=== PATIENT | male | born 1945 ===

== ENCOUNTER 2023-08-04 20:25 | Inpatient (IN) | payer MEDICARE ==
[~2023-08-04] VITALS: Ht 190.5 cm; Wt 137.5 kg
[2023-08-04 20:28] VITALS: BP 168/94
[2023-08-04] MEDS ORDERED: Acetaminophen 325 MG TABLET PO PRN (21:50)
[2023-08-04] MEDS ORDERED: Acetaminophen 650 MG Supp PR PRN (21:50)
[2023-08-04 22:11] LABS: Hematocrit 41.3 % (37.0-53.0); Hemoglobin 13.1 g/dL (13.5-17.5); Mean Corpuscular HGB 29.6 pg (26.0-34.0); Mean Corpuscular HGB Conc 31.7 g/dL (31.5-36.5); Mean Corpuscular Volume 93 fL (80-100); RDW Coefficient Variation 17.5 % (11.7-14.2); RDW Standard Deviation 59.9 fL (35.1-46.3); Red Blood Cell Count 4.43 M/mm3 (4.30-5.90); White Blood Cell Count 10.03 K/mm3 (4.00-11.30)
[2023-08-04 22:15] LABS: Platelet Count 23 K/mm3 (150-400)
[2023-08-04 22:26] LABS: Magnesium, Blood 2.5 mg/dL (1.6-2.4)
[2023-08-04 22:27] LABS: Phosphorus, Blood 5.5 mg/dL (2.5-4.9)
[2023-08-04 22:31] LABS: BAND PERCENT MAN 2 % (0-8); BASOPHILS PERCENT MAN 1 % (0-2); EOSINOPHILS PERCENT MAN 1 % (0-6); LYMPHOCYTES PERCENT MAN 15 % (21-46); MONOCYTES PERCENT MAN 6 % (4-13); NEUTROPHILS ABSOLUTE MAN 7.72 K/mm3 (1.96-9.15); SEG NEUTROPHILS PERCENT MAN 75 % (41-73); TOTAL CELLS COUNTED 100
[2023-08-04] MEDS ORDERED: Ipratropium/Albuterol SulF 2.5-0.5MG/3 ML Amp INH SCH (23:00)
[2023-08-04 23:04] LABS: Albumin, Blood 3.6 g/dL (3.4-5.0); Albumin/Globulin Ratio 0.8 (0.8-1.8); Bilirubin, Total 0.9 mg/dL (0.1-1.0); Bun/Creatinine Ratio 8.7 (12.0-20.0); Calcium, Blood 8.6 mg/dL (8.5-10.1); Creatinine, Blood 5.19 mg/dL (0.60-1.20); Globulin, Blood 4.4 g/dL (2.2-4.0); Potassium, Blood 4.9 mmol/L (3.5-5.5)
[2023-08-04 23:05] LABS: Bicarbonate Venous 26.5 mmol/L (24.0-30.0); PCO2 Venous 52.1 mmHg (38-42); pH Blood Venous 7.36 (7.34-7.37)
[2023-08-04 23:06] LABS: Base Excess Venous 4.1 mmol/L
[2023-08-04] MEDS ORDERED: Albuterol 2.5 MG/3 ML VIAL INH PRN (23:30)
[2023-08-04] MEDS ORDERED: Albuterol HFA200 ACT/6.7 GM INH INH PRN (23:30)
[2023-08-04] MEDS ORDERED: ALPRAZolam 1 MG Tab PO ONE (23:55)
[2023-08-05] VITALS (17 sets, daily range): BP systolic 104–157; BP diastolic 58–103
[2023-08-05] MEDS ORDERED: HydrALAZINE HCl 20 MG / ML 1ML Vial IV PRN (00:05)
[2023-08-05] MEDS ORDERED: CefTRIAXone Sodium 1,000 MG in NS 100 ML IV SCH (00:10)
[2023-08-05] MEDS ORDERED: NS 250 ML IV PRN (00:15)
[2023-08-05] MEDS ORDERED: Azithromycin 500 MG in NS 250 ML IV SCH (00:15)
[2023-08-05] MEDS ORDERED: TraMADol HCl 50 MG Tab PO PRN (00:15)
--- NOTE | 2023-08-05 01:25 | NUR ---
DIRECT ADMIT PT ARRIVED @ 1999 FROM [place] VIA [facility]SP[facility]. PT ARRIVED ON O2 6L/NC AND SWITCHED TO 6L/HFNC UPON ARRIVAL. PT ARRIVED SHORTLY AFTER PT.
[2023-08-05] MEDS ORDERED: CARV6.25 PO (02:22)
[2023-08-05] MEDS ORDERED: ESCI20 PO (02:23)
[2023-08-05] MEDS ORDERED: MIDO5 PO (02:24)
[2023-08-05] MEDS ORDERED: VITAMIN D33000 UNIT PO (02:27)
[2023-08-05] MEDS ORDERED: ALPR1 PO (02:29)
[2023-08-05] MEDS ORDERED: Calcium Acetat667 MG (02:31)
[2023-08-05] MEDS ORDERED: Colace100 MG PO (02:32)
[2023-08-05] MEDS ORDERED: FAMC500 PO (02:37)
[2023-08-05 04:30] LABS: BASOPHILS ABSOLUTE AUTO 0.04 K/mm3 (0.00-0.23); BASOPHILS PERCENT AUTO 0 % (0-2); EOSINOPHILS ABSOLUTE AUTO 0.55 K/mm3 (0.00-0.68); EOSINOPHILS PERCENT AUTO 6 % (0-6); Hematocrit 39.5 % (37.0-53.0); Hemoglobin 12.4 g/dL (13.5-17.5); IMMATURE GRAN ABSOLUTE AUTO 0.03 K/mm3 (0.00-0.10); IMMATURE GRAN PERCENT AUTO 0 % (0-1); LYMPHOCYTES ABSOLUTE AUTO 1.25 K/mm3 (0.84-5.20); LYMPHOCYTES PERCENT AUTO 13 % (21-46); MONOCYTES ABSOLUTE AUTO 0.93 K/mm3 (0.16-1.47); MONOCYTES PERCENT AUTO 10 % (4-13); Mean Corpuscular HGB 29.2 pg (26.0-34.0); Mean Corpuscular HGB Conc 31.4 g/dL (31.5-36.5); Mean Corpuscular Volume 93 fL (80-100); NEUTROPHILS ABSOLUTE AUTO 6.53 K/mm3 (1.96-9.15); NEUTROPHILS PERCENT AUTO 70 % (41-73); RDW Coefficient Variation 17.4 % (11.7-14.2); RDW Standard Deviation 59.6 fL (35.1-46.3); Red Blood Cell Count 4.24 M/mm3 (4.30-5.90); White Blood Cell Count 9.33 K/mm3 (4.00-11.30)
[2023-08-05 04:45] LABS: Platelet Count 25 K/mm3 (150-400)
[2023-08-05 04:50] LABS: Albumin, Blood 3.5 g/dL (3.4-5.0); Albumin/Globulin Ratio 0.8 (0.8-1.8); Bilirubin, Total 0.7 mg/dL (0.1-1.0); Bun/Creatinine Ratio 9.8 (12.0-20.0); Calcium, Blood 8.3 mg/dL (8.5-10.1); Creatinine, Blood 5.29 mg/dL (0.60-1.20); Globulin, Blood 4.2 g/dL (2.2-4.0); Magnesium, Blood 2.5 mg/dL (1.6-2.4); Phosphorus, Blood 5.5 mg/dL (2.5-4.9); Potassium, Blood 4.6 mmol/L (3.5-5.5); Total Protein, Blood 7.7 g/dL (6.4-8.2)
--- NOTE | 2023-08-05 06:01 | NUR ---
SHIFT SUMMARY NOC PT A/O X 4. INDEPENDENT/CONTINENT. DIRECT ADMIT FROM [facility] IN [place]. PT ADMITTED FOR ACUTE RESPIRATORY FAILURE SECONDARY TO VOLUME OVERLOAD. PT WAS AT DIALYSIS YESTERDAY AND BECAME SEVERLY SOB AFTER 2 HOURS. PT ON 6L/HFNC, BUT IS RA BASELINE. PT STARTED IV ABX FOR POSSIBLE PNA, CHEST X RAY PENDING. PT HAD CRITICAL PLT 23 UP FROM 17 AT [facility] ED. PT USES CPAP WITH 4L BLEED IN BASELINE FOR MER, AND IT IS SET UP IN ROOM. PT HAS ANXIETY WHICH SEEMS LIKE PT IS IN RESPIRATOR DISTRESS, BUT SPO2 MAINTAINS >95%, AND ANXIETY RX GIVEN. PT IS DM2 AC/HS CHECKS. NEPHROLOGY CONSULT CALLED IN TO DR FONSECA WITH DIALYSIS STARTING SUNDAY. PT HAS HD CATHETER IN [place] AND [place]. PT CURRENTLY RESTING WITH SPOUSE IN ROOM WHO STAYED NIGHT, BED IN LOWEST POSITION, AND CALL LIGHT WITHIN REACH.
[2023-08-05] MEDS ORDERED: Furosemide 80 MG Tab PO SCH ×2 (06:35→09:00)
--- NOTE | 2023-08-05 06:44 | NUR ---
SHIFT SUMMARY NOC PT A/O X 4. INDEPENDENT/CONTINENT. DIRECT ADMIT FROM [facility] IN [place]. PT ADMITTED FOR ACUTE RESPIRATORY FAILURE SECONDARY TO VOLUME OVERLOAD. PT WAS AT DIALYSIS YESTERDAY AND BECAME SEVERLY SOB AFTER 2 HOURS. PT ON 6L/HFNC, BUT IS RA BASELINE. PT STARTED IV ABX FOR POSSIBLE PNA, CHEST X RAY PENDING. PT HAD CRITICAL PLT 23 UP FROM 17 AT [facility] ED. PT USES CPAP WITH 4L BLEED IN BASELINE FOR MER, AND IT IS SET UP IN ROOM. PT HAS ANXIETY WHICH SEEMS LIKE PT IS IN RESPIRATOR DISTRESS, BUT SPO2 MAINTAINS >95%, AND ANXIETY RX GIVEN. PT IS DM2 AC/HS CHECKS. NEPHROLOGY CONSULT CALLED IN TO DR FONSECA WITH DIALYSIS STARTING THIS MORNING FOR 3 DAYS IN A ROW. LASIX 80MG PO ORDERED DAILY FOR DIURESIS PREFERRABLY FOR NON DIALYSIS. DR FONSECA GAVE ORDER TO HOLD HEPARIN AM AND TO PASS TO DIALYSIS NURSE NOT TO ADMINISTER HEPARIN DURIN TREATMENT DUE TO CRITICAL PLT COUNT. PT HAS HD CATHETER IN [place] AND [place]. PT CURRENTLY RESTING WITH SPOUSE IN ROOM WHO STAYED NIGHT, BED IN LOWEST POSITION, AND CALL LIGHT WITHIN REACH.
[2023-08-05] MEDS ORDERED: Insulin Regular 100 UNIT/ML 10ML Vial SC SCH (07:30)
[2023-08-05] MEDS ORDERED: Anticoagulant Sod Citrate Soln 3 ML SYR INJ PRN (08:05)
[2023-08-05] MEDS ORDERED: Calcium Acetate 667 MG Gel Cap PO SCH (08:30)
[2023-08-05] MEDS ORDERED: Vitamin B Cmplx/Vit C/Folic Ac 1 Tab PO SCH (09:00)
[2023-08-05] MEDS ORDERED: Sacubitril/Valsartan 24 MG-26 MG Tab PO SCH (09:00)
[2023-08-05] MEDS ORDERED: Heparin Sodium,Porcine 5,000 UNIT/0.5 ML SDV SC SCH (09:00)
[2023-08-05] MEDS ORDERED: ALPRAZOLAM110 PO (11:11)
[2023-08-05] MEDS ORDERED: ALPRAZolam 0.25 MG Tab PO PRN (11:55)
[2023-08-05] MEDS ORDERED: Polyethylene Glycol 3350 17 gm PO PRN (12:00)
--- NOTE | 2023-08-05 19:35 | NUR ---
DAY SHIFT SUMMARY: A&Ox4. PLEASANT AND COOPERATIVE WITH CARE. CALLS APPROPRIATELY AND IS ABLE TO ADVOCATE NEEDS EFFECTIVELY. AMBULATES 1PA c FWW TO BATHROOM. OLIGURIA SECONDARY TO HD PATIENT. BM TODAY. DIALYSIS COMPLETED TODAY WITH PLANS TO DIALYZE x3 DAYS. MEDS WHOLE WITH WATER. TELE AFIB, BBB, PVC. 2+ EDEMA T/O. MEDICATED x1 WITH PRN TRAMADOL FOR PAIN DURING DIALYSIS. BEDSIDE ECHO COMPLATED. AT BEDSIDE ALL DAY. BED IN LOWEST POSITION. CALL LIGHT WITHIN REACH. ALL NEEDS MET. REPORT TO ONCOMING RN.
[2023-08-05] MEDS ORDERED: Lactobacil 2-S.Thermo-Bifido 1 1 Cap PO SCH (21:00)
[2023-08-05] MEDS ORDERED: Docusate Sodium/Senna 1 Tab PO SCH (21:00)
[2023-08-06] VITALS (19 sets, daily range): BP systolic 129–186; BP diastolic 67–103
[2023-08-06] MEDS ORDERED: Polyethylene Glycol 3350 17 gm PO PRN (02:20)
[2023-08-06 04:57] LABS: Hematocrit 40.1 % (37.0-53.0); Hemoglobin 12.7 g/dL (13.5-17.5)
[2023-08-06 05:20] LABS: Albumin, Blood 3.7 g/dL (3.4-5.0); Anion Gap 9 mmol/L (3-11); Blood Urea Nitrogen 44 mg/dL (8-24); Bun/Creatinine Ratio 8.6 (12.0-20.0); CO2, Blood 31 mmol/L (21-32); Calcium, Blood 8.5 mg/dL (8.5-10.1); Chloride, Blood 100 mmol/L (98-108); Creatinine, Blood 5.11 mg/dL (0.60-1.20); Glomerular Filtration Rate 11 (60-); Glucose, Blood 158 mg/dL (70-99); Magnesium, Blood 2.5 mg/dL (1.6-2.4); Phosphorus, Blood 4.9 mg/dL (2.5-4.9); Potassium, Blood 4.2 mmol/L (3.5-5.5); Sodium, Blood 136 mmol/L (136-145)
--- NOTE | 2023-08-06 05:54 | NUR ---
SHIFT SUMMARY NOC PT A/O X 4. PLEASANT AND COOPERATIVE WITH CARE. VSS. NO ACUTE CHANGES TO REPORT. PT HAD DIALYSIS SESSION YESTERDAY WITH NET FLUID REMOVAL 4.5L. PT REPORTED ANXIETY DURING CHANGE OF SHIFT REPORT AND WAS MEDICATED WITH XANAX. PT HAS BEEN WEANED DOWN FROM 6L/HFNC TO 3L/HFNC AND REPORTING FEELING DECREASED SOB. PT STARTED SLEEP WITH CPAP, BUT DECIDED TO SWITCH BACK TO HFNC INSTEAD FOR COMFORT. PT HAS SECOND DIALYSIS SESSION SCHEDULED FOR 0800 AM TODAY. PT HAVING C/O OF CONSITPATION AND NOT HAVING BM FOR LAST 3 DAYS, SCHEDULED SENNA GIVEN WELL MIXTURE OF PRUNE JUICE, BUTTER, AND MIRALAX TO GET BOWELS MOVING.
[2023-08-06] MEDS ORDERED: Anticoagulant Sod Citrate Soln 3 ML SYR INJ PRN (08:10)
[2023-08-06] MEDS ORDERED: Furosemide 80 MG Tab PO SCH (09:00)
[2023-08-06] MEDS ORDERED: Diazepam 5 MG / ML 2ML SYR IV STA (10:01)
[2023-08-06] MEDS ORDERED: Ondansetron 4 MG SoluTab MM PRN (10:20)
[2023-08-06] MEDS ORDERED: Bisacodyl 10 MG Supp PR PRN (14:15)
--- NOTE | 2023-08-06 16:51 | NUR ---
Upon receiving a referral for spiritual care, I visited the patient. Patient and his spouse, Mary Jane are very pleasant and welcome a spiritual care visit. They explain about the medical history and the complication of his case. They share about their 55 yrs of marriage, the strong family and [employer] roddy support and speak passionately about how God has been so faithful to them all their lives. The patient is in the process of writing a book about all the times they have experienced unique miracles. It appears that the patient and Mary Jane are so generous and caring that incredible good things seem thais them down. 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 I listened empathically, reinforced their helpful attitudes and practices, and provide theological insights and prayer. Both patient and Mary Jane responded well to the visit and showed signs of being encouraged in their roddy.
--- NOTE | 2023-08-06 19:13 | NUR ---
SUMMARY PT IS ALERT AND ORIENTED. ABLE TO MAKE NEEDS KNOWN. TREATED CONSTIPATION, ANXIETY AND PAIN PER EMAR. IS AT BEDSIDE. LIKELY TO DISCHARGE HOME TOMORROW. TITRATED TO 2L NC. TOLORATING WELL.
[2023-08-07] VITALS (18 sets, daily range): BP systolic 114–181; BP diastolic 62–106
[2023-08-07 04:41] LABS: BASOPHILS ABSOLUTE AUTO 0.06 K/mm3 (0.00-0.23); BASOPHILS PERCENT AUTO 1 % (0-2); EOSINOPHILS ABSOLUTE AUTO 0.97 K/mm3 (0.00-0.68); EOSINOPHILS PERCENT AUTO 12 % (0-6); Hematocrit 41.9 % (37.0-53.0); Hemoglobin 13.5 g/dL (13.5-17.5); IMMATURE GRAN ABSOLUTE AUTO 0.03 K/mm3 (0.00-0.10); IMMATURE GRAN PERCENT AUTO 0 % (0-1); LYMPHOCYTES ABSOLUTE AUTO 1.17 K/mm3 (0.84-5.20); LYMPHOCYTES PERCENT AUTO 14 % (21-46); MONOCYTES ABSOLUTE AUTO 1.09 K/mm3 (0.16-1.47); MONOCYTES PERCENT AUTO 13 % (4-13); Mean Corpuscular HGB 29.5 pg (26.0-34.0); Mean Corpuscular HGB Conc 32.2 g/dL (31.5-36.5); Mean Corpuscular Volume 92 fL (80-100); NEUTROPHILS PERCENT AUTO 59 % (41-73); RDW Coefficient Variation 17.4 % (11.7-14.2); RDW Standard Deviation 58.3 fL (35.1-46.3); Red Blood Cell Count 4.57 M/mm3 (4.30-5.90); White Blood Cell Count 8.12 K/mm3 (4.00-11.30)
--- NOTE | 2023-08-07 04:45 | NUR ---
NOC SHIFT SUMMARY PT GIVEN PRN HYDRALAZINE ONCE FOR HIGH BLOOD PRESSURE. ANTICIPATING DIALYSIS AND POSSIBLE DISCHARGE TODAY. STANDING WEIGHT DONE THIS MORNING. AT BEDSIDE. CALL LIGHT WITHIN REACH.
[2023-08-07 04:48] LABS: Platelet Count 36 K/mm3 (150-400)
[2023-08-07 05:00] LABS: Albumin, Blood 3.6 g/dL (3.4-5.0); Anion Gap 10 mmol/L (3-11); Blood Urea Nitrogen 40 mg/dL (8-24); Bun/Creatinine Ratio 13.4 (12.0-20.0); CO2, Blood 30 mmol/L (21-32); Calcium, Blood 8.4 mg/dL (8.5-10.1); Chloride, Blood 101 mmol/L (98-108); Creatinine, Blood 2.98 mg/dL (0.60-1.20); Glomerular Filtration Rate 21 (60-); Glucose, Blood 185 mg/dL (70-99); Magnesium, Blood 2.5 mg/dL (1.6-2.4); Phosphorus, Blood 4.1 mg/dL (2.5-4.9); Potassium, Blood 4.4 mmol/L (3.5-5.5); Sodium, Blood 137 mmol/L (136-145)
[2023-08-07] MEDS ORDERED: Anticoagulant Sod Citrate Soln 3 ML SYR INJ PRN (07:45)
[2023-08-07] MEDS ORDERED: NEPHRO-VITE PO (14:48)
[2023-08-07] MEDS ORDERED: ALBU90OI INH (14:48)
[2023-08-07] MEDS ORDERED: CEFP200 PO (14:50)
[2023-08-07] MEDS ORDERED: FURO40 PO (14:52)
[2023-08-07] MEDS ORDERED: ENTRESTO 24 MG1 EACH PO (14:52)
[2023-08-07] MEDS ORDERED: VISBIOME 112.51 EACH PO (14:53)
--- NOTE | 2023-08-07 17:46 | NUR ---
DISCHARGE SUMMARY: PT DISCHARGED HOME TO [place]. FAXED PRESCRIPTIONS TO [facility] IN [place] AND CALLED AND SPOKE TO [facility] WHO VERIFIED THEY RECEIVED PRESCRITIONS AND WILL FILL PER ORDER. PT EDUCATED ON DISCHARGE MEDICATIONS AND INSTRUCTIONS. PT V/U. ASSISTED PT WITH GETTING PACKED UP. FAMILY ASSISTED PT WITH GETTING DRESSED. AJ DELIVERED O2 TANK AND INSTRUCTED ON USE. PT ESCORTED TO POV WITH AND SON AND ESCORTED TO POV BY FAMILY VIA WC.
== END 2023-08-07 15:48 | disposition home or self-care (01) | DRG 193 ==
LOC: MEDS 20:25
PROVIDERS: Internal Medicine Nephrology; ADMIT Student in an Organized Health Care Education/Training Program
PROC: 5A1D70Z Performance of Urinary Filtration, Intermittent, Less than 6 Hours Per Day (ICD-10-PCS; principal; 2023-08-05)
PROC: 5A09457 Assistance with Respiratory Ventilation, 24-96 Consecutive Hours, Continuous Positive Airway Pressure (ICD-10-PCS; 2023-08-05)
DX: J18.9 Pneumonia, unspecified organism (principal); J96.21 Acute and chronic respiratory failure with hypoxia; J96.22 Acute and chronic respiratory failure with hypercapnia; N18.6 End stage renal disease; D69.3 Immune thrombocytopenic purpura; R04.2 Hemoptysis; J44.0 Chronic obstructive pulmonary disease with (acute) lower respiratory infection; N25.81 Secondary hyperparathyroidism of renal origin; I13.11 Hypertensive heart and chronic kidney disease without heart failure, with stage 5 chronic kidney disease, or end stage renal disease; E87.70 Fluid overload, unspecified; F41.9 Anxiety disorder, unspecified; G89.29 Other chronic pain; E11.22 Type 2 diabetes mellitus with diabetic chronic kidney disease; I27.20 Pulmonary hypertension, unspecified; E66.9 Obesity, unspecified; E83.39 Other disorders of phosphorus metabolism; D63.1 Anemia in chronic kidney disease; M54.9 Dorsalgia, unspecified; K59.00 Constipation, unspecified; R94.31 Abnormal electrocardiogram [ECG] [EKG]; R79.89 Other specified abnormal findings of blood chemistry; Z99.2 Dependence on renal dialysis; Z86.718 Personal history of other venous thrombosis and embolism; Z79.891 Long term (current) use of opiate analgesic
CPT/HCPCS: 36415; 71045; 71260; 80053; 80069; 82803; 82947; 83036; 83735; 83880; 84100; 84145; 85014; 85018; 85025; 93306; 94640; 94660; 94760; 94761; 94762; A9270; J0456; J0696; J1815; J3360; J7050; Q9967